=== PATIENT | female | born 1975 | race Caucasian/White ===

== ENCOUNTER 2017-08-09 16:13 | Emergency (ER) | payer SELFPAY ==
[~2017-08-09] VITALS: Ht 162.6 cm; Wt 94.2 kg
[~2017-08-09 16:13] MED LIST: ROBA750T3 PO; ZOFR4TAB3 SL
[2017-08-09 16:31] VITALS: BP 134/64; PULSE 82; RESP 18; TEMP 98.4; O2SAT 100
[2017-08-09] MEDS ORDERED: ORPHENADRINE INJ 60 MG/2 ML AMP IM ONE ×2 (17:00)
--- NOTE | 2017-08-09 17:04 | PD ---
HPI Chief Complaint: Musculoskeletal Complaint Time Seen by Provider: 16:48 Travel History International Travel<30 days: No Contact w/Intl Traveler<30days: No Traveled to known affect area: No History of Present Illness HPI 41-year-old female presents to emergency department complaining of low back pain for 1 day. States that she has a history of chronic low back pain however , this is different. States that she was working today and developed increased severe pain to her lumbar region with radiating pain down the right leg. States that she took 400 mg ibuprofen this morning however did not relieve her pain. Movement increases her pain, nothing seems to relieve it. She normally does not take ibuprofen or other NSAIDs towards because it makes her nauseous. She denies fever, chills, trauma, history of IV drug use, weakness, saddle anesthesia, loss of bowel or bladder function. PFSH Past Medical History Anxiety: Yes Depression: Yes Heart Rhythm Problems: No Cardiac Catheterization: No Cardiovascular Problems: No High Cholesterol: No Congestive Heart Failure: No Diabetes: No Diminished Hearing: No Immunizations Current: Yes Tetanus Vaccination: Unknown Influenza Vaccination: Yes ?: Not : 4 Para: 3 Miscarriage: 1 Tubal Ligation: Yes Past Surgical History Section: Yes (x 3) Cholecystectomy: Yes Coronary Artery Bypass Graft: No Social History Alcohol Use: Yes (two to three vodka drinks a day for about 3 years) Tobacco Use: No Substance Use: No Allergies-Medications (Allergen,Severity, Reaction): Coded Allergies: codeine (Unverified Allergy, Severe, N/V, 08/09/17) naproxen (Unverified Adverse Reaction, Mild, Nausea/Vomiting, 08/09/17) Reported Meds & Prescriptions Reported Meds & Active Scripts Active Review of Systems Except as stated in HPI: all other systems reviewed are Neg Physical Exam Narrative GENERAL: Well-developed obese SKIN: Focused skin assessment warm/dry. HEAD: Atraumatic. Normocephalic. EYES: Pupils equal and round. No scleral icterus. No injection or drainage. ENT: No nasal bleeding or discharge. Mucous membranes pink and moist. NECK: Trachea midline. No JVD. No TTP midline spine CARDIOVASCULAR: Regular rate and rhythm. No murmur appreciated. RESPIRATORY: No accessory muscle use. Clear to auscultation. Breath sounds equal bilaterally. GASTROINTESTINAL: Abdomen soft, non-tender, nondistended. BACK: No CVA tenderness. No rash. Mild point tenderness on palpation of the lumbar spine and paraspinous muscles MUSCULOSKELETAL: No obvious deformities. No clubbing. No cyanosis. No edema. NEUROLOGICAL: Awake and alert. No obvious cranial nerve deficits. Motor grossly within normal limits. Normal speech. Neurovascular intact. PSYCHIATRIC: Appropriate mood and affect; insight and judgment normal. Data Data Last Documented VS Vital Signs Date Time Temp Pulse Resp B/P (MAP) Pulse Ox O2 Delivery O2 Flow Rate FiO2 08/09/17 16:31 98.4 82 18 134/64 (87) 100 Orders Orders Spine, Lumbar - Ltd (Ap & Lat) (08/09/17 ) Orphenadrine Inj (Norflex Inj) (08/09/17 17:00) MDM Medical Decision Making Medical Screen Exam Complete: Yes Emergency Medical Condition: Yes Differential Diagnosis Right-sided sciatica versus acute on chronic lumbago versus muscle spasm Narrative Course 41-year-old female presents to the emergency department for evaluation of acute on chronic low back pain that started today during work. States that she does have chronic back pain however, this feels different. She has developed shooting pain in the right leg. She denies trauma, history of IV drug use, or any other red flags. Physical exam demonstrates midline TTP of the lumbar spine and surrounding paraspinous muscles. It is unlikely there is bony involvement however, because of patient's midline tenderness ordered x-ray lumbar spine. Xrays without acute process. Patient will be discharged with muscle relaxers. Advised follow-up with her primary care physician within 2 days. Use caution when taking these medications. Diagnosis Primary Impression: Lumbago Qualified Codes: M54.41 - Lumbago with sciatica, right side Referrals: Orthopedist Primary Care Physician Additional Instructions: Perform light stretches of the lower back and legs, and alternate heat and ice packs. If you develop increased pain, weakness, fever, chills, or bowel or bladder issues, return to the ED for further treatment and evaluation. Follow up with your primary care physician in 2-3 days. Scripts Methocarbamol (Robaxin) 500 Mg Tab 500 MG PO TID for Muscle Spasm for 5 Days, TAB 0 Refills Prov: Jovani Dominguez MD 08/09/17 Disposition: 01 DISCHARGE HOME Condition: Stable Farhana Valencia Aug 09, 2017 17:04
--- NOTE | 2017-08-09 18:07 | RADRPT ---
EXAM DATE/TIME: 08/09/2017 17:35 [facility] COMPARISON: SPINE LUMBAR LTD (AP & LAT), June 02, 2016, 4:47. INDICATIONS : Lower back pain from unknown injury. MEDICAL HISTORY : None. SURGICAL HISTORY : None. ENCOUNTER: Initial ACUITY: 1 day PAIN SCORE: 8/10 LOCATION: Bilateral lower back. FINDINGS: Two view examination was performed. Lumbarized S1, similar to prior. The vertebral bodies are in no rmal alignment without evidence of subluxation or scoliosis. The disc spaces are maintained. The pe dicles and transverse processes are intact. The arcuate lines the sacrum are symmetric. Bony minera lization is normal. No fracture is identified. CONCLUSION: No evidence of compression deformity or spondylolisthesis. Alvin Ingram MD on August 09, 2017 at 18:04 Board Certified Radiologist. This report was verified electronically.
[2017-08-09] MEDS ORDERED: ROBA500T PO ×2 (18:13)
== END 2017-08-09 18:35 | disposition home or self-care (01) ==
LOC: PHEFT 16:13
DX: M54.41 Lumbago with sciatica, right side (principal); G89.29 Other chronic pain; X58.XXXA Exposure to other specified factors, initial encounter; Y99.0 Civilian activity done for income or pay
CPT/HCPCS: 72100; 96372; 99285; J2360